=== PATIENT | female | born 1945 | race Caucasian/White ===

== ENCOUNTER 2017-08-14 14:51 | Inpatient (IN) | payer OTHER ==
[~2017-08-14] VITALS: Ht 162.6 cm; Wt 113.6 kg
[2017-08-14 15:38] LABS: BASOPHIL % 0.3 % (0-2); RED CELL DISTRIBUTION WIDTH 14.1 % (11.5-14.5)
[2017-08-14 15:43] LABS: PLATELET COUNT 77 x10^3mcL (130-400)
[2017-08-14 15:45] LABS: CALCIUM 8.3 mg/dL (8.5-10.1); CARBON DIOXIDE 21.5 mmol/L (21-32); CREATININE SERUM 2.5 mg/dL (0.6-1.0); POTASSIUM SERUM 4.3 mmol/L (3.5-5.1); TOTAL PROTEIN, SERUM 6.3 g/dL (6.4-8.2)
[2017-08-14 15:46] LABS: ALBUMIN 2.5 g/dL (3.4-5.0)
[2017-08-14] MEDS ORDERED: APIDRA SOLOS100 U/ML (16:19)
[2017-08-14] MEDS ORDERED: APIDRA100 U/M1 (16:19)
[2017-08-14] MEDS ORDERED: KEN025C (16:20)
[2017-08-14] MEDS ORDERED: KETOCONAZOLE2% (16:20)
[2017-08-14] MEDS ORDERED: LANTUS SOLOS100 U/M1 (16:20)
[2017-08-14] MEDS ORDERED: LIPI20 PO (16:21)
[2017-08-14] MEDS ORDERED: LASIX40 MG PO (16:21)
[2017-08-14] MEDS ORDERED: NEU300 PO (16:21)
[2017-08-14] MEDS ORDERED: AMLODIPINE BESYL5 M2 PO (16:21)
[2017-08-14] MEDS ORDERED: LOSARTAN POTASS1 TA6 (16:22)
[2017-08-14 16:41] LABS: microscopic required? YES; urine erythrocyte 3+ (NEGATIVE)
[2017-08-14 17:34] VITALS: BP 154/64
[2017-08-14 17:50] LABS: PHOSPHOROUS 4.2 mg/dL (2.5-4.9)
[2017-08-14 17:51] LABS: CHOLESTEROL/HDL RATIO 8.5
[2017-08-14 17:56] LABS: MAGNESIUM 2.1 mg/dL (1.8-2.4)
[2017-08-14 18:05] LABS: RED BLOOD CELLS 2.88 M/mm3 (4.10-5.10)
[2017-08-14 18:23] LABS: FREE THYROXINE INDEX 2.3 ug/dL (1.4-4.5); T4(THYROXINE) 6.3 ug/dL (4.7-13.3)
[2017-08-14 18:48] LABS: TOTAL IRON BINDING CAPACITY 261 ug/dL (250-450)
[2017-08-14 18:51] LABS: IRON 17 ug/dL (50-170)
[2017-08-14 18:58] LABS: FREE T4 1.11 ng/dL (0.76-1.46)
[2017-08-14 19:38] LABS: T3 TOTAL 0.47 ng/mL
[2017-08-14 20:44] VITALS: BP 148/71
[2017-08-15 05:09] VITALS: BP 137/63
[2017-08-15 06:33] LABS: BASOPHIL % 0.2 % (0-2)
[2017-08-15 06:51] LABS: CARBON DIOXIDE 22.6 mmol/L (21-32); CREATININE SERUM 2.5 mg/dL (0.6-1.0); MAGNESIUM 2.2 mg/dL (1.8-2.4); PHOSPHOROUS 4.8 mg/dL (2.5-4.9); POTASSIUM SERUM 4.2 mmol/L (3.5-5.1)
[2017-08-15 07:07] LABS: PLATELET COUNT 76 x10^3mcL (130-400); RED CELL DISTRIBUTION WIDTH 14.6 % (11.5-14.5)
[2017-08-15 09:03] VITALS: Ht 162.6 cm; Wt 113.6 kg
[2017-08-15 10:06] VITALS: BP 157/49
[2017-08-15 13:22] VITALS: BP 146/60
[2017-08-15 16:36] VITALS: BP 98/38
[2017-08-15 20:27] VITALS: BP 124/44
[2017-08-16 06:16] VITALS: BP 140/51
[2017-08-16 06:55] LABS: BASOPHIL % 0.2 % (0-2); RED CELL DISTRIBUTION WIDTH 14.4 % (11.5-14.5)
[2017-08-16 07:09] LABS: CALCIUM 8.1 mg/dL (8.5-10.1); CARBON DIOXIDE 22.1 mmol/L (21-32); CREATININE SERUM 2.3 mg/dL (0.6-1.0); MAGNESIUM 2.2 mg/dL (1.8-2.4); PHOSPHOROUS 4.2 mg/dL (2.5-4.9); POTASSIUM SERUM 3.9 mmol/L (3.5-5.1)
[2017-08-16 08:07] LABS: PLATELET COUNT 81 x10^3mcL (130-400)
[2017-08-16 09:03] VITALS: BP 141/46
[2017-08-16 13:29] VITALS: BP 109/49
[2017-08-16 17:00] VITALS: BP 127/50
[2017-08-16 21:51] VITALS: BP 127/39
[2017-08-17 06:08] VITALS: BP 109/34
[2017-08-17 07:48] LABS: BASOPHIL % 0.3 % (0-2); RED CELL DISTRIBUTION WIDTH 14.5 % (11.5-14.5)
[2017-08-17 07:49] LABS: PLATELET COUNT 85 x10^3mcL (130-400)
[2017-08-17 07:59] LABS: CALCIUM 8.1 mg/dL (8.5-10.1); CARBON DIOXIDE 21.4 mmol/L (21-32); PHOSPHOROUS 4.2 mg/dL (2.5-4.9); POTASSIUM SERUM 3.4 mmol/L (3.5-5.1)
[2017-08-17 09:54] VITALS: BP 142/55
[2017-08-17 13:16] VITALS: BP 128/40
[2017-08-17 14:26] VITALS: BP 128/40
[2017-08-17] MEDS ORDERED: GOOD SENSE ASPI81 M3 PO (14:59)
[2017-08-17] MEDS ORDERED: SOD1 PO (15:04)
[2017-08-17] MEDS ORDERED: POTASSIUM CHLO20 ME3 PO (15:05)
[2017-08-17] MEDS ORDERED: HYDRALAZINE HCL25 MG PO (15:12)
[2017-08-17] MEDS ORDERED: KEFLEX500 M1 PO (15:34)
== END 2017-08-17 18:15 | DRG 682 ==
LOC: ED 14:51 → DU 16:30
PROVIDERS: Emergency Medicine; Family Medicine; Student in an Organized Health Care Education/Training Program
DX: N17.0 Acute kidney failure with tubular necrosis (principal); G93.41 Metabolic encephalopathy; E43 Unspecified severe protein-calorie malnutrition; N39.0 Urinary tract infection, site not specified; E87.1 Hypo-osmolality and hyponatremia; M62.82 Rhabdomyolysis; Z68.41 Body mass index [BMI] 40.0-44.9, adult; R31.9 Hematuria, unspecified; I65.21 Occlusion and stenosis of right carotid artery; I12.9 Hypertensive chronic kidney disease with stage 1 through stage 4 chronic kidney disease, or unspecified chronic kidney disease; E11.22 Type 2 diabetes mellitus with diabetic chronic kidney disease; N18.9 Chronic kidney disease, unspecified; D63.1 Anemia in chronic kidney disease; E11.51 Type 2 diabetes mellitus with diabetic peripheral angiopathy without gangrene; E78.2 Mixed hyperlipidemia; Z96.652 Presence of left artificial knee joint; Z79.4 Long term (current) use of insulin
CPT/HCPCS: 82962; 83880; 84439; 97116-GP; 97530-GP; G0378; J0696; J1644; J2405; J3010; J7030; Q0092